=== PATIENT | male | born 1925 | race Caucasian/White ===

== ENCOUNTER 2016-08-24 10:36 | Inpatient (IN) | payer OTHER, MEDICAID ==
[2016-08-24] MEDS ORDERED: APRESOLINE INJ 20 MG VIAL IVP PRN (13:51)
[2016-08-24 14:01] VITALS: BMI 27.0
[2016-08-24 14:35] LABS: BASOPHILS # (AUTO) 0.1 X10^3/uL (0.0-0.1); BASOPHILS % (AUTO) 1.2 % (0.2-1.0); EOSINOPHILS # (AUTO) 0.1 x10^3/uL (0.0-0.2); EOSINOPHILS % (AUTO) 1.7 % (0.9-2.9); HEMATOCRIT 37.1 % (42.0-54.0); HEMOGLOBIN 12.3 g/dL (13.5-18.0); LYMPHOCYTES # (AUTO) 2.1 X10^3/uL (1.3-2.9); LYMPHOCYTES % (AUTO) 24.2 % (21.0-51.0); MEAN CORPUSCULAR VOLUME 93.9 fL (80.0-100.0); MONOCYTES # (AUTO) 1.1 x10^3/uL (0.3-0.8); NEUTROPHILS # (AUTO) 5.3 x10^3/uL (2.2-4.8); NEUTROPHILS % (AUTO) 60.9 % (42.0-75.0); PLATELET COUNT 187 X10^3/uL (150.0-450.0); RED BLOOD COUNT 3.96 X10^6/uL (4.7-6.0); RED CELL DISTRIBUTION WIDTH 16.3 % (11.6-16.5); WHITE BLOOD COUNT 8.8 X10^3/uL (3.6-10.0)
[2016-08-24 14:44] LABS: ALANINE AMINOTRANSFERASE 91 Units/L (12-78); ALKALINE PHOSPHATASE 206 Units/L (46-116); ASPARTATE AMINO TRANSFERASE 43 Units/L (15-37); BLOOD UREA NITROGEN 13 mg/dL (7-18); CALCIUM 8.2 mg/dL (8.5-10.1); CARBON DIOXIDE 25.1 mmol/L (21-32); CHLORIDE 108 mmol/L (98-107); CREATININE 1.21 mg/dL (0.70-1.30); GLUCOSE 110 mg/dL (65-99); SODIUM 143 mmol/L (136-145); TOTAL PROTEIN 6.5 g/dL (6.4-8.2); eGFR BLACK RACES > 60 (>60); eGFR NON BLACK RACES > 60 (>60)
[2016-08-24 16:02] LABS: BILIRUBIN,URINE NEGATIVE (NEGATIVE); BLOOD/HEMOGLOBIN,URINE 1+ (NEGATIVE); GLUCOSE, URINE NEGATIVE (NEGATIVE); KETONES,URINE NEGATIVE (NEGATIVE); LEUKOCYTE ESTERASE ,URINE NEGATIVE (NEGATIVE); NITRITES,URINE NEGATIVE (NEGATIVE); PROTEIN,URINE NEGATIVE (NEGATIVE); UROBILINOGEN,URINE 2+ (NORMAL)
[2016-08-24 16:12] LABS: AMORPHOUS SEDIMENT,UR TRACE /HPF (NEGATIVE); APPEARANCE,URINE CLEAR (CLEAR); BACTERIA,URINE TRACE /HPF (NEGATIVE); COLOR,URINE DARK YELLOW (YELLOW); MUCUS,URINE RARE /HPF (NEGATIVE); RBC,URINE 0-2 /HPF (NEGATIVE); SQUAMOUS EPITHELIAL CELL,UR RARE /HPF (NEGATIVE)
[2016-08-24] MEDS: NS 1000 ML 1,000 ML IV SCH (16:31)
[2016-08-24] MEDS ORDERED: [UNRECOGNIZED DRUG - OTHER] PO PRN (17:41)
--- NOTE | 2016-08-24 17:48 | DR.H&P ---
H&P - History & Physical for Day of: H&P Date: 08/24/16 - Chief Complaint Chief Complaint: BP elevated, patient not eating, coughing and congestion - Allergies Allergies/Adverse Reactions: Allergies Allergy/AdvReac Type Severity Reaction Status Date / Time No Known Drug Allergy Allergy Verified 08/24/16 17:05 - History of Present Illness History of Present Illness: The patient is an 89-year-old white male who presents to the [facility] with his son for evaluation of medical problems. The patient does have dementia. The son states that he has not had his medications this morning. Blood pressure is 201/126. According to son, patient usually takes medication after breakfast. The son states that he has to be forced to eat. States that he is sleeping more. Does state he is having more cough and congestion. Denies fever or rhinitis. INR in office setting is 3.7. Does complain of headaches, but does state blood pressure had been good at home. Does have history of CVA. - Past Medical History Past Medical History: Anemia, Coronary Artery Disease, CVA (Left hemiplegia), Dementia, Depression, Dyslipidemia, Hypertension, Hypothyroidism Additional Medical History: Atrial Fibrillation on Coumadin Therapy, Lumbar intervertebral disc degeneration - Past Surgical History Surgical History: Other Additional Surgical History: EGD, Colonoscopy, Cardiac Catherization - Family History Family Medical History: [place], Coronary Artery Disease, Heart Failure, Hypertension - Social History Does patient currently use any type of tobacco product: No Have you used tobacco products in the last 12 months: No Type of Tobacco Use: None Does any household member use tobacco: No Alcohol Use: Other Drug Use: None - Medications Home Medications: Cyproheptadine HCl [PERIACTIN 4 MG TAB *] 1 tab PO TID 08/24/16 [History Confirmed 08/24/16] Dextromethorphan-Guaifenesin [Tussin Dm Max Adult 10-200 mg/5Ml] 10 ml PO PRN PRN 08/24/16 [History Confirmed 08/24/16] Furosemide [LASIX TAB 20 MG *] 1 tab PO DAILY 08/24/16 [History Confirmed ] Hydrocodone-Acet 5 mg/325 mg [NORCO 5 MG/325 MG *] 1 tab PO BID PRN 08/24/16 [ History Confirmed 08/24/16] Isosorbide Dinitrate [Isordil 30 mg] 1 tab PO DAILY 08/24/16 [History Confirmed 08/24/16] Levothyroxine Sodium [SYNTHROID 50 mcg *] 1 tab PO DAILY 08/24/16 [History Confirmed 08/24/16] Lisinopril [ZESTRIL *] 1 tab PO DAILY 08/24/16 [History Confirmed 08/24/16] Loratadine 1 tab PO HS 08/24/16 [History Confirmed 08/24/16] Metoprolol Succinate [Toprol Xl] 1 tab PO DAILY 08/24/16 [History Confirmed 03/02] Omeprazole [PRILOSEC 20 MG *] 1 tab PO DAILY 08/24/16 [History Confirmed ] Potassium Chloride [Potassium Chloride Cr] 1 tab PO DAILY 08/24/16 [History Confirmed 08/24/16] Sertraline HCl [ZOLOFT 100 MG *] 1 tab PO HS 08/24/16 [History Confirmed ] Simvastatin [ZOCOR 20 MG *] 1 tab PO HS 08/24/16 [History Confirmed 08/24/16] Tizanidine HCl [Zanaflex 4 mg] 0.5 tab PO HS 08/24/16 [History Confirmed ] Warfarin Sodium 1 tab PO WEEKLY 08/24/16 [History Confirmed 08/24/16] Warfarin Sodium [Coumadin] 1 tab PO DAILY 08/24/16 [History Confirmed 08/24/16] - Review of Systems Constitutional: Weakness, Malaise Eyes: No Symptoms Reported ENT: No Symptoms Reported Respiratory: Cough Cardiovascular: No Symptoms Reported Gastrointestinal: Other (loss of appetite) Genitourinary: No Symptoms Reported Musculoskeletal: Back Pain Skin: No Symptoms Reported Neurological: No Symptoms Reported - Physical Exam Vital Signs: Temperature 97.6 F Pulse Rate [Left Radial] 62 Respiratory Rate 20 Blood Pressure [Left Arm] 154/89 O2 Sat by Pulse Oximetry 95 Oriented: Normal Eyes: Normal Ear: Normal (Hard of hearing) Nose: Normal Throat: Normal Respiratory: Clear Throughout Cardiovascular: Normal : Normal Auscultation: Bowel Sounds: Normal Palpation: Normal Tenderness: Normal Skin: Normal Musculoskeletal: Normal Psychiatric: Normal Mood Description: Calm Affect: Quiet Speech Pattern: Clear - Assessment/Plan (1) Hypertension, accelerated Status: Acute Plan: Monitor BP, Hydralazine IV PRN (2) Failure to thrive Qualifiers: Failure to thrive age range: F Status: Acute Plan: Megace po, encourage meals (3) Dementia Qualifiers: Dementia type: D Alzheimer's disease onset: A Dementia behavioral disturbance: D Status: Acute Plan: Aricept (4) Upper respiratory infection Qualifiers: URI type: U Pharyngitis/tonsillitis etiology: P Airway obstruction: A Streptococcal tonsillitis recurrence: S Status: Acute Plan: Labs, CXR
[2016-08-24] MEDS ORDERED: ROBITUSSIN DM PO PRN (18:10)
[2016-08-24] MEDS: ROCEPHIN VIAL 1 GM 1 GM in NS 50 ML IV + SPIKE MINIBAG* 50 ML IV SCH (18:14)
[2016-08-24 18:17] LABS: FREE T4 (FREE THYROXINE) 1.09 ng/dL (0.76-1.46); TSH (3RD GENERATION) 3.128 uIU/mL (0.358-3.74)
--- NOTE | 2016-08-24 19:05 | RAD ---
HISTORY: Fatigue Study: Single view of the chest. Comparison: None. Findings: Cardiomegaly with pulmonary edema. No focal consolidations, pleural effusions or pneumothorax. Garner us structures demonstrate no acute abnormality. Likely bilateral calcified granulomas. IMPRESSION: 1. Cardiomegaly with mild pulmonary edema. 2. Evidence of prior granulomatous disease Reported By:
--- NOTE | 2016-08-24 19:10 | CT ---
CT OF THE ABDOMEN AND PELVIS WITHOUT CONTRAST HISTORY: Elevated bilirubin and hematuria Comparison: None Technique: Multiple axial images of the abdomen and pelvis were obtained from the lung bases to the pubic symph ysis without the administration of IV contrast. Dose reduction techniques including Automated Expos ure Control (AEC) and adjustment of mA and kV were utlized. Findings: The heart is normal in size. There is no pericardial effusion. Lung bases are clear without focal co nsolidation, pleural effusion or pneumothorax. Severe Coronary artery calcification. Very large hia bethanie hernia containing the entirety of the stomach The sensitivity for focal lesion detection within the solid abdominal viscera is diminished without the use of IV contrast. Liver and spleen are normal in size, and contour. No focal lesions. No ductal dilitation. Gallbladde r is present. No calcified gallstones or gallbladder wall thickening. The pancreas is unremarkable. Adrenal glands are normal. Kidneys are normal in contour without hydronephrosis or nephrolithiasis. No bowel obstruction or inflammation. Diverticulosis without diverticulitis. No abnormal appearing m esenteric or retroperitoneal lymph nodes. No free fluid or fluid collections. 3.4 cm infrarenal abdominal aortic aneurysm. The bladder is normal in appearance. Prostate not enlarged. No free fluid or abnormal pelvic lymph n odes. No aggressive osseous lesions. Severe osteopenia. Severe compression deformities of L1 through L5. IMPRESSION: 1. No source of patient's elevated bilirubin or hematuria can be identified on this examination. 2. Infrarenal abdominal aortic aneurysm as above. 3. Very large hiatal hernia containing the entirety of the stomach. 4. Severe coronary artery calcification. 5. Severe compression deformities of the entirety of the lumbar spine. These appear chronic. Reported By:
[2016-08-24] MEDS ORDERED: ZOLOFT PO ONE (20:48)
[2016-08-24] MEDS ORDERED: [UNRECOGNIZED DRUG - OTHER] PO SCH (21:00)
[2016-08-24] MEDS ORDERED: [UNRECOGNIZED DRUG - OTHER] PO SCH (21:00)
[2016-08-24] MEDS: NORCO 5/325 MG TAB PO PRN (21:15)
[2016-08-24] MEDS: ZANAFLEX PO SCH (21:16)
[2016-08-24] MEDS: COUMADIN TAB 4 MG PO SCH (21:17)
[2016-08-24] MEDS: CLARITIN PO SCH (21:18)
[2016-08-24] MEDS: ZOCOR TAB 20 MG PO SCH (21:19)
[2016-08-24] MEDS: ZOLOFT PO SCH (21:19)
[2016-08-25] MEDS: NS 1000 ML 1,000 ML IV SCH ×2 (05:38→15:28)
[2016-08-25 06:11] LABS: BASOPHILS # (AUTO) 0.1 X10^3/uL (0.0-0.1); EOSINOPHILS # (AUTO) 0.3 x10^3/uL (0.0-0.2); EOSINOPHILS % (AUTO) 2.9 % (0.9-2.9); HEMATOCRIT 34.2 % (42.0-54.0); HEMOGLOBIN 11.3 g/dL (13.5-18.0); LYMPHOCYTES % (AUTO) 33.9 % (21.0-51.0); MEAN CORPUSCULAR HEMOGLOBIN 31.3 pg (27.0-34.0); MEAN CORPUSCULAR VOLUME 94.9 fL (80.0-100.0); MEAN PLATELET VOLUME 9.7 fL (7.4-11.0); MONOCYTES % (AUTO) 11.8 % (0.0-13.0); NEUTROPHILS # (AUTO) 4.4 x10^3/uL (2.2-4.8); NEUTROPHILS % (AUTO) 50.4 % (42.0-75.0); PLATELET COUNT 180 X10^3/uL (150.0-450.0); RED CELL DISTRIBUTION WIDTH 16.7 % (11.6-16.5); WHITE BLOOD COUNT 8.8 X10^3/uL (3.6-10.0)
[2016-08-25 06:40] LABS: ALANINE AMINOTRANSFERASE 71 Units/L (12-78); ALBUMIN 2.6 g/dL (3.4-5.0); ALKALINE PHOSPHATASE 180 Units/L (46-116); ASPARTATE AMINO TRANSFERASE 39 Units/L (15-37); BLOOD UREA NITROGEN 16 mg/dL (7-18); CALCIUM 8.1 mg/dL (8.5-10.1); CARBON DIOXIDE 27.9 mmol/L (21-32); CHLORIDE 109 mmol/L (98-107); COR CA(FOR HYPOALB) 9.2 mg/dL (8.5-10.1); CREATININE 1.19 mg/dL (0.70-1.30); GLUCOSE 78 mg/dL (65-99); SODIUM 143 mmol/L (136-145); TOTAL PROTEIN 5.9 g/dL (6.4-8.2); eGFR BLACK RACES > 60 (>60); eGFR NON BLACK RACES > 60 (>60)
[2016-08-25] MEDS ORDERED: [UNRECOGNIZED DRUG - OTHER] PO SCH (09:00)
[2016-08-25] MEDS ORDERED: SYNTHROID 50 mcg TAB PO SCH (09:00)
[2016-08-25] MEDS ORDERED: [UNRECOGNIZED DRUG - OTHER] PO SCH (09:00)
[2016-08-25] MEDS: ISOSORBIDE DINITRATE PO SCH (09:18)
[2016-08-25] MEDS: LASIX PO SCH (09:18)
[2016-08-25] MEDS: COUMADIN TAB 4 MG PO SCH (09:19)
[2016-08-25] MEDS: TOPROL XL PO SCH (09:20)
[2016-08-25] MEDS: PriLOSEC PO SCH (09:20)
[2016-08-25] MEDS: MICRO K EXTEN CAP 10 MEQ PO SCH (09:20)
[2016-08-25] MEDS: ZESTRIL TAB 40 MG PO SCH (09:20)
[2016-08-25] MEDS: ROCEPHIN VIAL 1 GM 1 GM in NS 50 ML IV + SPIKE MINIBAG* 50 ML IV SCH (09:20)
[2016-08-25] MEDS: SYNTHROID 50 mcg TAB PO SCH (15:46)
[2016-08-25] MEDS ORDERED: ZOLOFT PO ONE (20:27)
[2016-08-25] MEDS: CLARITIN PO SCH (20:36)
[2016-08-25] MEDS: ZOCOR TAB 20 MG PO SCH (20:37)
[2016-08-25] MEDS: ZANAFLEX PO SCH (20:37)
[2016-08-25] MEDS: ZOLOFT PO SCH (20:37)
[2016-08-25] MEDS: NORCO 5/325 MG TAB PO PRN (23:09)
[2016-08-26] MEDS: NS 1000 ML 1,000 ML IV SCH ×2 (04:55→17:07)
[2016-08-26 07:04] LABS: BASOPHILS # (AUTO) 0.1 X10^3/uL (0.0-0.1); BASOPHILS % (AUTO) 1.2 % (0.2-1.0); EOSINOPHILS # (AUTO) 0.2 x10^3/uL (0.0-0.2); EOSINOPHILS % (AUTO) 2.5 % (0.9-2.9); HEMATOCRIT 37.6 % (42.0-54.0); HEMOGLOBIN 12.4 g/dL (13.5-18.0); LYMPHOCYTES # (AUTO) 2.3 X10^3/uL (1.3-2.9); LYMPHOCYTES % (AUTO) 29.6 % (21.0-51.0); MEAN CORPUSCULAR HEMOGLOBIN 30.9 pg (27.0-34.0); MEAN CORPUSCULAR HGB CONC 32.9 g/dL (33.0-35.0); MONOCYTES # (AUTO) 0.9 x10^3/uL (0.3-0.8); MONOCYTES % (AUTO) 12.4 % (0.0-13.0); NEUTROPHILS # (AUTO) 4.1 x10^3/uL (2.2-4.8); NEUTROPHILS % (AUTO) 54.3 % (42.0-75.0); PLATELET COUNT 196 X10^3/uL (150.0-450.0); RED BLOOD COUNT 4.01 X10^6/uL (4.7-6.0); RED CELL DISTRIBUTION WIDTH 16.2 % (11.6-16.5); WHITE BLOOD COUNT 7.6 X10^3/uL (3.6-10.0)
[2016-08-26 07:07] LABS: ALANINE AMINOTRANSFERASE 63 Units/L (12-78); ALBUMIN 2.8 g/dL (3.4-5.0); ALKALINE PHOSPHATASE 187 Units/L (46-116); ASPARTATE AMINO TRANSFERASE 31 Units/L (15-37); BLOOD UREA NITROGEN 18 mg/dL (7-18); CALCIUM 8.4 mg/dL (8.5-10.1); CARBON DIOXIDE 26.4 mmol/L (21-32); CHLORIDE 108 mmol/L (98-107); COR CA(FOR HYPOALB) 9.4 mg/dL (8.5-10.1); GLUCOSE 81 mg/dL (65-99); SODIUM 143 mmol/L (136-145); TOTAL PROTEIN 6.3 g/dL (6.4-8.2); eGFR BLACK RACES > 60 (>60); eGFR NON BLACK RACES > 60 (>60)
[2016-08-26] MEDS: ISOSORBIDE DINITRATE PO SCH (08:25)
[2016-08-26] MEDS: LASIX PO SCH (08:25)
[2016-08-26] MEDS: COUMADIN TAB 4 MG PO SCH (08:25)
[2016-08-26] MEDS: PriLOSEC PO SCH (08:26)
[2016-08-26] MEDS: ROCEPHIN VIAL 1 GM 1 GM in NS 50 ML IV + SPIKE MINIBAG* 50 ML IV SCH (08:26)
[2016-08-26] MEDS: ZESTRIL TAB 40 MG PO SCH (08:26)
[2016-08-26] MEDS: MICRO K EXTEN CAP 10 MEQ PO SCH (08:26)
[2016-08-26] MEDS: TOPROL XL PO SCH (08:26)
[2016-08-26] MEDS: SYNTHROID 50 mcg TAB PO SCH (16:35)
[2016-08-26] MEDS ORDERED: ZOLOFT PO ONE (20:27)
[2016-08-26] MEDS: ZOCOR TAB 20 MG PO SCH (20:47)
[2016-08-26] MEDS: CLARITIN PO SCH (20:47)
[2016-08-26] MEDS: ZOLOFT PO SCH (20:47)
[2016-08-26] MEDS: ZANAFLEX PO SCH (20:47)
[2016-08-26] MEDS: NORCO 5/325 MG TAB PO PRN (20:47)
[2016-08-27 06:21] LABS: ALANINE AMINOTRANSFERASE 57 Units/L (12-78); ALBUMIN 2.7 g/dL (3.4-5.0); ALKALINE PHOSPHATASE 180 Units/L (46-116); ASPARTATE AMINO TRANSFERASE 38 Units/L (15-37); BLOOD UREA NITROGEN 16 mg/dL (7-18); CALCIUM 8.1 mg/dL (8.5-10.1); CARBON DIOXIDE 27.6 mmol/L (21-32); CHLORIDE 108 mmol/L (98-107); COR CA(FOR HYPOALB) 9.1 mg/dL (8.5-10.1); CREATININE 1.15 mg/dL (0.70-1.30); GLUCOSE 84 mg/dL (65-99); SODIUM 142 mmol/L (136-145); TOTAL PROTEIN 6.2 g/dL (6.4-8.2); eGFR BLACK RACES > 60 (>60); eGFR NON BLACK RACES > 60 (>60)
[2016-08-27] MEDS: NS 1000 ML 1,000 ML IV SCH ×2 (06:22→20:29)
[2016-08-27 06:27] LABS: BASOPHILS # (AUTO) 0.1 X10^3/uL (0.0-0.1); BASOPHILS % (AUTO) 1.2 % (0.2-1.0); EOSINOPHILS # (AUTO) 0.2 x10^3/uL (0.0-0.2); EOSINOPHILS % (AUTO) 2.7 % (0.9-2.9); HEMATOCRIT 38.4 % (42.0-54.0); HEMOGLOBIN 12.5 g/dL (13.5-18.0); LYMPHOCYTES # (AUTO) 2.4 X10^3/uL (1.3-2.9); LYMPHOCYTES % (AUTO) 30.6 % (21.0-51.0); MEAN CORPUSCULAR HEMOGLOBIN 30.8 pg (27.0-34.0); MEAN CORPUSCULAR HGB CONC 32.6 g/dL (33.0-35.0); MEAN CORPUSCULAR VOLUME 94.5 fL (80.0-100.0); MONOCYTES # (AUTO) 1.1 x10^3/uL (0.3-0.8); MONOCYTES % (AUTO) 13.8 % (0.0-13.0); NEUTROPHILS % (AUTO) 51.7 % (42.0-75.0); PLATELET COUNT 193 X10^3/uL (150.0-450.0); RED BLOOD COUNT 4.07 X10^6/uL (4.7-6.0); RED CELL DISTRIBUTION WIDTH 16.7 % (11.6-16.5); WHITE BLOOD COUNT 7.8 X10^3/uL (3.6-10.0)
[2016-08-27] MEDS: MICRO K EXTEN CAP 10 MEQ PO SCH (10:20)
[2016-08-27] MEDS: PriLOSEC PO SCH (10:20)
[2016-08-27] MEDS: TOPROL XL PO SCH (10:20)
[2016-08-27] MEDS: LASIX PO SCH (10:20)
[2016-08-27] MEDS: ZESTRIL TAB 40 MG PO SCH (10:20)
[2016-08-27] MEDS: ROCEPHIN VIAL 1 GM 1 GM in NS 50 ML IV + SPIKE MINIBAG* 50 ML IV SCH (10:20)
[2016-08-27] MEDS: ISOSORBIDE DINITRATE PO SCH (10:21)
[2016-08-27] MEDS: COUMADIN TAB 4 MG PO SCH ×2 (10:27→20:32)
[2016-08-27] MEDS: SYNTHROID 50 mcg TAB PO SCH (17:11)
[2016-08-27] MEDS ORDERED: ZOLOFT PO ONE (20:19)
[2016-08-27] MEDS: ZOCOR TAB 20 MG PO SCH (20:30)
[2016-08-27] MEDS: ZANAFLEX PO SCH (20:31)
[2016-08-27] MEDS: ZOLOFT PO SCH (20:31)
[2016-08-27] MEDS: NORCO 5/325 MG TAB PO PRN (20:31)
[2016-08-27] MEDS: CLARITIN PO SCH (20:33)
[2016-08-28 05:20] LABS: BASOPHILS # (AUTO) 0.1 X10^3/uL (0.0-0.1); BASOPHILS % (AUTO) 1.2 % (0.2-1.0); EOSINOPHILS # (AUTO) 0.2 x10^3/uL (0.0-0.2); EOSINOPHILS % (AUTO) 2.6 % (0.9-2.9); HEMATOCRIT 37.2 % (42.0-54.0); HEMOGLOBIN 12.1 g/dL (13.5-18.0); LYMPHOCYTES # (AUTO) 2.5 X10^3/uL (1.3-2.9); LYMPHOCYTES % (AUTO) 30.9 % (21.0-51.0); MEAN CORPUSCULAR HEMOGLOBIN 30.8 pg (27.0-34.0); MEAN CORPUSCULAR HGB CONC 32.4 g/dL (33.0-35.0); MEAN CORPUSCULAR VOLUME 94.9 fL (80.0-100.0); MEAN PLATELET VOLUME 9.4 fL (7.4-11.0); MONOCYTES % (AUTO) 12.2 % (0.0-13.0); NEUTROPHILS # (AUTO) 4.2 x10^3/uL (2.2-4.8); NEUTROPHILS % (AUTO) 53.1 % (42.0-75.0); PLATELET COUNT 201 X10^3/uL (150.0-450.0); RED BLOOD COUNT 3.92 X10^6/uL (4.7-6.0); RED CELL DISTRIBUTION WIDTH 16.8 % (11.6-16.5); WHITE BLOOD COUNT 7.9 X10^3/uL (3.6-10.0)
[2016-08-28 05:34] LABS: ALANINE AMINOTRANSFERASE 54 Units/L (12-78); ALBUMIN 2.8 g/dL (3.4-5.0); ALKALINE PHOSPHATASE 175 Units/L (46-116); ASPARTATE AMINO TRANSFERASE 36 Units/L (15-37); BLOOD UREA NITROGEN 13 mg/dL (7-18); CALCIUM 8.2 mg/dL (8.5-10.1); CARBON DIOXIDE 26.6 mmol/L (21-32); CHLORIDE 109 mmol/L (98-107); COR CA(FOR HYPOALB) 9.2 mg/dL (8.5-10.1); CREATININE 1.28 mg/dL (0.70-1.30); GLUCOSE 78 mg/dL (65-99); SODIUM 143 mmol/L (136-145); TOTAL PROTEIN 6.1 g/dL (6.4-8.2); eGFR BLACK RACES > 60 (>60); eGFR NON BLACK RACES 56 (>60)
--- NOTE | 2016-08-28 07:03 | RAD ---
History: Weakness and fatigue Study: Portable chest Comparison: August 24 Findings: There is unchanged mild cardiomegaly and vascular congestion. There is a calcified granulo ma at the right lung base. There is no focal consolidation. Impression: Chronic cardiomegaly and vascular congestion Reported By:
[2016-08-28] MEDS: NS 1000 ML 1,000 ML IV SCH (09:01)
[2016-08-28] MEDS: ZESTRIL TAB 40 MG PO SCH (09:02)
[2016-08-28] MEDS: ROCEPHIN VIAL 1 GM 1 GM in NS 50 ML IV + SPIKE MINIBAG* 50 ML IV SCH (09:02)
[2016-08-28] MEDS: MICRO K EXTEN CAP 10 MEQ PO SCH (09:02)
[2016-08-28] MEDS: TOPROL XL PO SCH (09:03)
[2016-08-28] MEDS: LASIX PO SCH (09:03)
[2016-08-28] MEDS: ISOSORBIDE DINITRATE PO SCH (09:03)
[2016-08-28] MEDS: PriLOSEC PO SCH (09:03)
[2016-08-28] MEDS: SYNTHROID 50 mcg TAB PO SCH (17:11)
--- NOTE | 2016-08-28 18:12 | PCM.PROG ---
Progress Note - Progress Note for Day of Date: 08/28/16 - Subjective Subjective: patient is a 89-year-old white male who was admitted on 511 with increased altered mental status. Patient is currently awaiting senior care placement. Plan to continue current medications blood pressure control and encourage oral hydration and supportive care. Family is aware of current medical plan of care for patient - Past Medical Family Social History Past Med/Fam/Surg Hx: No changes since H&P Allergies: Allergies No Known Drug Allergy Allergy (Verified 08/24/16 17:05) - Review of Systems ROS: No change since H&P - Vital Signs and I&O's Vital Signs: Temperature 97.9 F Pulse Rate [Left Radial] 65 Respiratory Rate 20 Blood Pressure [Right Arm] 133/98 Blood Pressure [Left Arm] 167/110 O2 Sat by Pulse Oximetry 96 Intake and Output: Intake & Output 08/26/16 08/27/16 08/28/16 08/29/16 11:59 11:59 11:59 11:59 Intake Total 1280 1950 1513 1020 Output Total 550 1900 1600 325 Balance 730 50 -87 695 - Physical Exam Oriented: Normal Eyes: Normal Ear: Normal (Hard of hearing) Nose: Normal Throat: Normal Respiratory: Wheezes (mild bilateral exp wheezes) Cardiovascular: Normal : Normal Auscultation: Bowel Sounds: Normal Tenderness: Normal Skin: Normal Musculoskeletal: Normal Psychiatric: Normal Mood Description: Calm Affect: Quiet Speech Pattern: Clear, Appropriate - Laboratory and Diagnostics Result Diagrams: 08/28/16 03:17 08/28/16 03:17 Labs: 08/24/16 14:10 Blood Blood Culture - Preliminary 08/24/16 14:00 Blood Blood Culture - Preliminary Laboratory WBC 7.9 X10^3/uL (3.6-10.0) 08/28/16 03:17 RBC 3.92 X10^6/uL (4.7-6.0) L 08/28/16 03:17 Hgb 12.1 g/dL (13.5-18.0) L 08/28/16 03:17 Hct 37.2 % (42.0-54.0) L 08/28/16 03:17 MCV 94.9 fL (80.0-100.0) 08/28/16 03:17 MCH 30.8 pg (27.0-34.0) 08/28/16 03:17 MCHC 32.4 g/dL (33.0-35.0) L 08/28/16 03:17 RDW 16.8 % (11.6-16.5) H 08/28/16 03:17 Plt Count 201 X10^3/uL (150.0-450.0) 08/28/16 03:17 MPV 9.4 fL (7.4-11.0) 08/28/16 03:17 Neut % 53.1 % (42.0-75.0) 08/28/16 03:17 Lymph % 30.9 % (21.0-51.0) 08/28/16 03:17 [place] % 12.2 % (0.0-13.0) 08/28/16 03:17 Eos % 2.6 % (0.9-2.9) 08/28/16 03:17 Baso % 1.2 % (0.2-1.0) H 08/28/16 03:17 Neut # 4.2 x10^3/uL (2.2-4.8) 08/28/16 03:17 Lymph # 2.5 X10^3/uL (1.3-2.9) 08/28/16 03:17 [place] # 1.0 x10^3/uL (0.3-0.8) H 08/28/16 03:17 Eos # 0.2 x10^3/uL (0.0-0.2) 08/28/16 03:17 Baso # 0.1 X10^3/uL (0.0-0.1) 08/28/16 03:17 Absolute Nucleated RBC 0.1 /100WBC 08/28/16 03:17 INR Target Range - 08/27/16 05:41 INR 2.31 (0.8-1.3) H 08/27/16 05:41 Sodium 143 mmol/L (136-145) 08/28/16 03:17 Corrected Sodium TNP 08/28/16 03:17 Potassium 3.7 mmol/L (3.5-5.1) 08/28/16 03:17 Chloride 109 mmol/L (98-107) H 08/28/16 03:17 Carbon Dioxide 26.6 mmol/L (21-32) 08/28/16 03:17 BUN 13 mg/dL (7-18) 08/28/16 03:17 Creatinine 1.28 mg/dL (0.70-1.30) 08/28/16 03:17 Est GFR (MDRD) Af Amer > 60 (>60) 08/28/16 03:17 Est GFR (MDRD) Non-Af 56 (>60) L 08/28/16 03:17 Glucose 78 mg/dL (65-99) 08/28/16 03:17 Calcium 8.2 mg/dL (8.5-10.1) L 08/28/16 03:17 Corrected Calcium 9.2 mg/dL (8.5-10.1) 08/28/16 03:17 Total Bilirubin 1.00 mg/dL (0.2-1.0) 08/28/16 03:17 AST 36 Units/L (15-37) 08/28/16 03:17 ALT 54 Units/L (12-78) 08/28/16 03:17 Alkaline Phosphatase 175 Units/L (46-116) H 08/28/16 03:17 Total Protein 6.1 g/dL (6.4-8.2) L 08/28/16 03:17 Albumin 2.8 g/dL (3.4-5.0) L 08/28/16 03:17 Globulin 3.3 g/dL (2.5-4.5) 08/28/16 03:17 Albumin/Globulin Ratio 0.8 Ratio (1.1-2.1) L 08/28/16 03:17 Free T4 1.09 ng/dL (0.76-1.46) 08/24/16 14:10 TSH 3rd Generation 3.128 uIU/mL (0.358-3.74) 08/24/16 14:10 Specimen Type Clean catch urine 08/24/16 15:55 Urine Color Dark yellow (YELLOW) 08/24/16 15:55 Urine Appearance Clear (CLEAR) 08/24/16 15:55 Urine pH 6.0 (5.0 - 8.0) 08/24/16 15:55 Ur Specific [place] 1.015 (1.000-1.030) 08/24/16 15:55 Urine Protein Negative (NEGATIVE) 08/24/16 15:55 Urine Glucose (UA) Negative (NEGATIVE) 08/24/16 15:55 Urine Ketones Negative (NEGATIVE) 08/24/16 15:55 Urine Occult Blood 1+ (NEGATIVE) 08/24/16 15:55 Urine Nitrite Negative (NEGATIVE) 08/24/16 15:55 Urine Bilirubin Negative (NEGATIVE) 08/24/16 15:55 Urine Urobilinogen 2+ (NORMAL) 08/24/16 15:55 Ur Leukocyte Esterase Negative (NEGATIVE) 08/24/16 15:55 Urine RBC 0-2 /HPF (NEGATIVE) 08/24/16 15:55 Urine WBC None seen /HPF (NEGATIVE) 08/24/16 15:55 Ur Squamous Epith Cells Rare /HPF (NEGATIVE) 08/24/16 15:55 Amorphous Sediment Trace /HPF (NEGATIVE) 08/24/16 15:55 Urine Bacteria Trace /HPF (NEGATIVE) 08/24/16 15:55 Urine Mucus Rare /HPF (NEGATIVE) 08/24/16 15:55 Ur Culture Indicated? No/not indicated 08/24/16 15:55 - Plan (1) Dementia Status: Acute Qualifiers: Dementia type: D Alzheimer's disease onset: A Dementia behavioral disturbance: D Plan: Aricept (2) Failure to thrive Status: Acute Qualifiers: Failure to thrive age range: F Plan: Megace po, encourage meals. [facility] PLACEMENT (3) Hypertension, accelerated Status: Acute Plan: BLOOD PRESSURE STABLE, WILL CONTINUE TO Monitor BP, Hydralazine IV PRN (4) Arthritis Status: Chronic (5) CAD (coronary artery disease) Status: Chronic Qualifiers: Coronary Disease-Associated Artery/Lesion type: C [place] vs. transplanted heart: N Associated angina: A (6) Depression Status: Chronic Qualifiers: Depression Type: D Major depression recurrence: M Active/Remission status : A Major depression episode severity: M Psychotic features: P Trimester: T (7) HTN (hypertension) Status: Chronic Qualifiers: Hypertension type: H (8) History of CVA with residual deficit Status: Chronic
[2016-08-28] MEDS ORDERED: ZOLOFT PO ONE (20:44)
[2016-08-28] MEDS: ZOCOR TAB 20 MG PO SCH (21:30)
[2016-08-28] MEDS: CLARITIN PO SCH (21:30)
[2016-08-28] MEDS: ZOLOFT PO SCH (21:30)
[2016-08-28] MEDS: ZANAFLEX PO SCH (21:30)
[2016-08-28] MEDS: COUMADIN TAB 4 MG PO SCH (21:33)
[2016-08-29 06:25] LABS: BASOPHILS # (AUTO) 0.1 X10^3/uL (0.0-0.1); EOSINOPHILS # (AUTO) 0.2 x10^3/uL (0.0-0.2); EOSINOPHILS % (AUTO) 2.7 % (0.9-2.9); HEMATOCRIT 35.4 % (42.0-54.0); HEMOGLOBIN 11.8 g/dL (13.5-18.0); LYMPHOCYTES # (AUTO) 2.1 X10^3/uL (1.3-2.9); LYMPHOCYTES % (AUTO) 24.5 % (21.0-51.0); MEAN CORPUSCULAR HEMOGLOBIN 31.6 pg (27.0-34.0); MEAN CORPUSCULAR HGB CONC 33.4 g/dL (33.0-35.0); MEAN CORPUSCULAR VOLUME 94.5 fL (80.0-100.0); MEAN PLATELET VOLUME 9.1 fL (7.4-11.0); MONOCYTES % (AUTO) 11.6 % (0.0-13.0); NEUTROPHILS # (AUTO) 5.3 x10^3/uL (2.2-4.8); NEUTROPHILS % (AUTO) 60.2 % (42.0-75.0); PLATELET COUNT 212 X10^3/uL (150.0-450.0); RED BLOOD COUNT 3.75 X10^6/uL (4.7-6.0); RED CELL DISTRIBUTION WIDTH 16.7 % (11.6-16.5); WHITE BLOOD COUNT 8.8 X10^3/uL (3.6-10.0)
[2016-08-29 06:42] LABS: ALANINE AMINOTRANSFERASE 48 Units/L (12-78); ALBUMIN 2.7 g/dL (3.4-5.0); ALKALINE PHOSPHATASE 161 Units/L (46-116); ASPARTATE AMINO TRANSFERASE 31 Units/L (15-37); BLOOD UREA NITROGEN 12 mg/dL (7-18); CALCIUM 8.2 mg/dL (8.5-10.1); CARBON DIOXIDE 26.4 mmol/L (21-32); CHLORIDE 108 mmol/L (98-107); COR CA(FOR HYPOALB) 9.2 mg/dL (8.5-10.1); CREATININE 1.27 mg/dL (0.70-1.30); GLUCOSE 78 mg/dL (65-99); SODIUM 143 mmol/L (136-145); eGFR BLACK RACES > 60 (>60); eGFR NON BLACK RACES 57 (>60)
[2016-08-29] MEDS: PriLOSEC PO SCH (09:42)
[2016-08-29] MEDS: ROCEPHIN VIAL 1 GM 1 GM in NS 50 ML IV + SPIKE MINIBAG* 50 ML IV SCH (09:42)
[2016-08-29] MEDS: ZESTRIL TAB 40 MG PO SCH (09:42)
[2016-08-29] MEDS: MICRO K EXTEN CAP 10 MEQ PO SCH (09:42)
[2016-08-29] MEDS: LASIX PO SCH (09:42)
[2016-08-29] MEDS: ISOSORBIDE DINITRATE PO SCH (09:43)
[2016-08-29] MEDS: TOPROL XL PO SCH (09:43)
[2016-08-29] MEDS: SYNTHROID 50 mcg TAB PO SCH (15:43)
[2016-08-29] MEDS: NS 1000 ML 1,000 ML IV SCH (15:43)
--- NOTE | 2016-08-29 18:03 | PCM.PROG ---
Progress Note - Progress Note for Day of Date: 08/29/16 - Subjective Subjective: patient is a 89-year-old white male who was admitted on 511 with increased altered mental status. Patient is currently awaiting halfway placement. Plan to continue current medications blood pressure control and encourage oral hydration and supportive care. Consult resp for chronic exp wheezes for maintenance inhalers.Family is aware of current medical plan of care for patient - Past Medical Family Social History Past Med/Fam/Surg Hx: No changes since H&P Allergies: Allergies No Known Drug Allergy Allergy (Verified 08/24/16 17:05) - Review of Systems ROS: No change since H&P - Vital Signs and I&O's Vital Signs: Temperature 97.9 F Pulse Rate [Left Radial] 65 Respiratory Rate 20 Blood Pressure [Right Arm] 173/84 Blood Pressure [Left Arm] 167/110 O2 Sat by Pulse Oximetry 95 Intake and Output: Intake & Output 08/27/16 08/28/16 08/29/16 08/30/16 11:59 11:59 11:59 11:59 Intake Total 1950 1513 2546 580 Output Total 1900 1600 1225 775 Balance 50 -87 1321 -195 - Physical Exam Oriented: Normal Eyes: Normal Ear: Normal (Hard of hearing) Nose: Normal Throat: Normal Respiratory: Wheezes (mild bilateral exp wheezes) Cardiovascular: Normal : Normal Auscultation: Bowel Sounds: Normal Tenderness: Normal Skin: Normal Musculoskeletal: Normal Psychiatric: Normal Mood Description: Calm Affect: Quiet Speech Pattern: Clear, Appropriate - Laboratory and Diagnostics Result Diagrams: 08/29/16 03:34 08/29/16 03:34 Labs: 08/24/16 14:10 Blood Blood Culture - Final 08/24/16 14:00 Blood Blood Culture - Final Laboratory WBC 8.8 X10^3/uL (3.6-10.0) 08/29/16 03:34 RBC 3.75 X10^6/uL (4.7-6.0) L 08/29/16 03:34 Hgb 11.8 g/dL (13.5-18.0) L 08/29/16 03:34 Hct 35.4 % (42.0-54.0) L 08/29/16 03:34 MCV 94.5 fL (80.0-100.0) 08/29/16 03:34 MCH 31.6 pg (27.0-34.0) 08/29/16 03:34 MCHC 33.4 g/dL (33.0-35.0) 08/29/16 03:34 RDW 16.7 % (11.6-16.5) H 08/29/16 03:34 Plt Count 212 X10^3/uL (150.0-450.0) 08/29/16 03:34 MPV 9.1 fL (7.4-11.0) 08/29/16 03:34 Neut % 60.2 % (42.0-75.0) 08/29/16 03:34 Lymph % 24.5 % (21.0-51.0) 08/29/16 03:34 [place] % 11.6 % (0.0-13.0) 08/29/16 03:34 Eos % 2.7 % (0.9-2.9) 08/29/16 03:34 Baso % 1.0 % (0.2-1.0) 08/29/16 03:34 Neut # 5.3 x10^3/uL (2.2-4.8) H 08/29/16 03:34 Lymph # 2.1 X10^3/uL (1.3-2.9) 08/29/16 03:34 [place] # 1.0 x10^3/uL (0.3-0.8) H 08/29/16 03:34 Eos # 0.2 x10^3/uL (0.0-0.2) 08/29/16 03:34 Baso # 0.1 X10^3/uL (0.0-0.1) 08/29/16 03:34 Absolute Nucleated RBC 0.2 /100WBC 08/29/16 03:34 INR Target Range - 08/29/16 03:34 INR 1.74 (0.8-1.3) H 08/29/16 03:34 Sodium 143 mmol/L (136-145) 08/29/16 03:34 Corrected Sodium TNP 08/29/16 03:34 Potassium 3.6 mmol/L (3.5-5.1) 08/29/16 03:34 Chloride 108 mmol/L (98-107) H 08/29/16 03:34 Carbon Dioxide 26.4 mmol/L (21-32) 08/29/16 03:34 BUN 12 mg/dL (7-18) 08/29/16 03:34 Creatinine 1.27 mg/dL (0.70-1.30) 08/29/16 03:34 Est GFR (MDRD) Af Amer > 60 (>60) 08/29/16 03:34 Est GFR (MDRD) Non-Af 57 (>60) L 08/29/16 03:34 Glucose 78 mg/dL (65-99) 08/29/16 03:34 Calcium 8.2 mg/dL (8.5-10.1) L 08/29/16 03:34 Corrected Calcium 9.2 mg/dL (8.5-10.1) 08/29/16 03:34 Total Bilirubin 0.90 mg/dL (0.2-1.0) 08/29/16 03:34 AST 31 Units/L (15-37) 08/29/16 03:34 ALT 48 Units/L (12-78) 08/29/16 03:34 Alkaline Phosphatase 161 Units/L (46-116) H 08/29/16 03:34 Total Protein 6.0 g/dL (6.4-8.2) L 08/29/16 03:34 Albumin 2.7 g/dL (3.4-5.0) L 08/29/16 03:34 Globulin 3.3 g/dL (2.5-4.5) 08/29/16 03:34 Albumin/Globulin Ratio 0.8 Ratio (1.1-2.1) L 08/29/16 03:34 Free T4 1.09 ng/dL (0.76-1.46) 08/24/16 14:10 TSH 3rd Generation 3.128 uIU/mL (0.358-3.74) 08/24/16 14:10 Specimen Type Clean catch urine 08/24/16 15:55 Urine Color Dark yellow (YELLOW) 08/24/16 15:55 Urine Appearance Clear (CLEAR) 08/24/16 15:55 Urine pH 6.0 (5.0 - 8.0) 08/24/16 15:55 Ur Specific [place] 1.015 (1.000-1.030) 08/24/16 15:55 Urine Protein Negative (NEGATIVE) 08/24/16 15:55 Urine Glucose (UA) Negative (NEGATIVE) 08/24/16 15:55 Urine Ketones Negative (NEGATIVE) 08/24/16 15:55 Urine Occult Blood 1+ (NEGATIVE) 08/24/16 15:55 Urine Nitrite Negative (NEGATIVE) 08/24/16 15:55 Urine Bilirubin Negative (NEGATIVE) 08/24/16 15:55 Urine Urobilinogen 2+ (NORMAL) 08/24/16 15:55 Ur Leukocyte Esterase Negative (NEGATIVE) 08/24/16 15:55 Urine RBC 0-2 /HPF (NEGATIVE) 08/24/16 15:55 Urine WBC None seen /HPF (NEGATIVE) 08/24/16 15:55 Ur Squamous Epith Cells Rare /HPF (NEGATIVE) 08/24/16 15:55 Amorphous Sediment Trace /HPF (NEGATIVE) 08/24/16 15:55 Urine Bacteria Trace /HPF (NEGATIVE) 08/24/16 15:55 Urine Mucus Rare /HPF (NEGATIVE) 08/24/16 15:55 Ur Culture Indicated? No/not indicated 08/24/16 15:55 - Plan (1) Dementia Status: Acute Qualifiers: Dementia type: D Alzheimer's disease onset: A Dementia behavioral disturbance: D Plan: Aricept (2) Failure to thrive Status: Acute Qualifiers: Failure to thrive age range: F Plan: Megace po, encourage meals. ASSISTED PLACEMENT (3) Hypertension, accelerated Status: Acute Plan: BLOOD PRESSURE STABLE, WILL CONTINUE TO Monitor BP, Hydralazine IV PRN (4) Arthritis Status: Chronic (5) CAD (coronary artery disease) Status: Chronic Qualifiers: Coronary Disease-Associated Artery/Lesion type: C [place] vs. transplanted heart: N Associated angina: A (6) Depression Status: Chronic Qualifiers: Depression Type: D Major depression recurrence: M Active/Remission status : A Major depression episode severity: M Psychotic features: P Trimester: T (7) HTN (hypertension) Status: Chronic Qualifiers: Hypertension type: H (8) History of CVA with residual deficit Status: Chronic (9) COPD (chronic obstructive pulmonary disease) Status: Acute Qualifiers: COPD type: C Chronic bronchitis type: C Emphysema type: E Plan: resp consult
[2016-08-29] MEDS ORDERED: ZOLOFT PO ONE (20:59)
[2016-08-29] MEDS: ZOLOFT PO SCH (21:02)
[2016-08-29] MEDS: ZANAFLEX PO SCH (21:03)
[2016-08-29] MEDS: CLARITIN PO SCH (21:03)
[2016-08-29] MEDS: COUMADIN TAB 4 MG PO SCH (21:03)
[2016-08-29] MEDS: ZOCOR TAB 20 MG PO SCH (21:03)
[2016-08-30 06:31] LABS: BASOPHILS # (AUTO) 0.1 X10^3/uL (0.0-0.1); BASOPHILS % (AUTO) 1.1 % (0.2-1.0); EOSINOPHILS # (AUTO) 0.2 x10^3/uL (0.0-0.2); EOSINOPHILS % (AUTO) 2.5 % (0.9-2.9); HEMOGLOBIN 11.8 g/dL (13.5-18.0); LYMPHOCYTES # (AUTO) 2.1 X10^3/uL (1.3-2.9); LYMPHOCYTES % (AUTO) 23.1 % (21.0-51.0); MEAN CORPUSCULAR HEMOGLOBIN 31.2 pg (27.0-34.0); MEAN CORPUSCULAR HGB CONC 32.9 g/dL (33.0-35.0); MEAN CORPUSCULAR VOLUME 94.7 fL (80.0-100.0); MONOCYTES % (AUTO) 10.7 % (0.0-13.0); NEUTROPHILS # (AUTO) 5.6 x10^3/uL (2.2-4.8); NEUTROPHILS % (AUTO) 62.6 % (42.0-75.0); PLATELET COUNT 203 X10^3/uL (150.0-450.0); RED CELL DISTRIBUTION WIDTH 16.7 % (11.6-16.5)
[2016-08-30 06:45] LABS: ALANINE AMINOTRANSFERASE 44 Units/L (12-78); ALBUMIN 2.8 g/dL (3.4-5.0); ALKALINE PHOSPHATASE 166 Units/L (46-116); ASPARTATE AMINO TRANSFERASE 31 Units/L (15-37); BLOOD UREA NITROGEN 13 mg/dL (7-18); CALCIUM 8.3 mg/dL (8.5-10.1); CARBON DIOXIDE 25.6 mmol/L (21-32); CHLORIDE 107 mmol/L (98-107); COR CA(FOR HYPOALB) 9.3 mg/dL (8.5-10.1); CREATININE 1.18 mg/dL (0.70-1.30); GLUCOSE 84 mg/dL (65-99); SODIUM 141 mmol/L (136-145); TOTAL PROTEIN 6.2 g/dL (6.4-8.2); eGFR BLACK RACES > 60 (>60); eGFR NON BLACK RACES > 60 (>60)
[2016-08-30] MEDS: ROCEPHIN VIAL 1 GM 1 GM in NS 50 ML IV + SPIKE MINIBAG* 50 ML IV SCH (08:37)
[2016-08-30] MEDS: ZESTRIL TAB 40 MG PO SCH (08:38)
[2016-08-30] MEDS: LASIX PO SCH (08:38)
[2016-08-30] MEDS: TOPROL XL PO SCH (08:38)
[2016-08-30] MEDS: PriLOSEC PO SCH (08:38)
[2016-08-30] MEDS: ISOSORBIDE DINITRATE PO SCH (08:38)
[2016-08-30] MEDS: MICRO K EXTEN CAP 10 MEQ PO SCH (08:38)
[2016-08-30] MEDS ORDERED: REFLEX: PROVENTIL NEB & PulmiCORT NEB~ NEB SCH (09:00)
[2016-08-30] MEDS ORDERED: PULMICORT NEB TX 0.5 MG NEB SCH (09:00)
[2016-08-30] MEDS: PROVENTIL NEB TX 0.083% 2.5MG/ 3ML NEB PRN ×2 (09:15→13:01)
[2016-08-30 16:39] VITALS: BP 177/85
== END 2016-08-30 15:25 | DRG 305 ==
LOC: MED/SURG 10:36
PROVIDERS: ADMIT Internal Medicine; ATTEND Internal Medicine
DX: I16.0 Hypertensive urgency (principal); J06.9 Acute upper respiratory infection, unspecified; R62.7 Adult failure to thrive; F03.90 Unspecified dementia, unspecified severity, without behavioral disturbance, psychotic disturbance, mood disturbance, and anxiety; I25.10 Atherosclerotic heart disease of native coronary artery without angina pectoris; E78.2 Mixed hyperlipidemia; I10 Essential (primary) hypertension; E03.8 Other specified hypothyroidism; Z79.01 Long term (current) use of anticoagulants; M13.89 Other specified arthritis, multiple sites; F32.89 Other specified depressive episodes; R26.89 Other abnormalities of gait and mobility; Z86.79 Personal history of other diseases of the circulatory system
CPT/HCPCS: 36415; 71010; 74176; 80053; 81001; 84439; 84443; 85025; 85610; 87040; 93005; 93010; 94640; 97535; A4216; A4222; J0696; J7613; J7626